=== PATIENT | male | born 1965 | race Caucasian/White ===

== ENCOUNTER 2022-02-03 08:51 | Outpatient (REF) | payer MEDICAID, SELFPAY ==
--- NOTE | ~2022-02-03 | XR_ITS ---
EXAMINATION: XR AP KNEE STANDING, BILATERAL XR KNEE, RIGHT KNEE CLINICAL INFORMATION: Knee pain. COMPARISON: None. TECHNIQUE: AP bilateral knee standing 1 view. Right knee 2 views. FINDINGS: Bilateral AP Knee: There is mild reduction in the medial compartment joint space both knees. The lateral compartment joint space is preserved. No loose bodies or bony erosive changes seen. The distal femur, proximal tibia and fibula bilaterally are unremarkable. Right Knee: There is moderate suprapatellar joint effusion with posterior-superior periarticular spurring of the patella. No loose bodies or bony erosive changes. XR/XR knee RT 2V IMPRESSION: Mild degenerative changes medial compartment both knees. Moderate suprapatellar joint effusion right knee with periarticular spurring of the patella. No visible acute fracture, dislocation or subluxation seen.
--- NOTE | ~2022-02-03 | XR_ITS ---
EXAMINATION: XR AP KNEE STANDING, BILATERAL XR KNEE, RIGHT KNEE CLINICAL INFORMATION: Knee pain. COMPARISON: None. TECHNIQUE: AP bilateral knee standing 1 view. Right knee 2 views. FINDINGS: Bilateral AP Knee: There is mild reduction in the medial compartment joint space both knees. The lateral compartment joint space is preserved. No loose bodies or bony erosive changes seen. The distal femur, proximal tibia and fibula bilaterally are unremarkable. Right Knee: There is moderate suprapatellar joint effusion with posterior-superior periarticular spurring of the patella. No loose bodies or bony erosive changes. XR/XR knee standing BI IMPRESSION: Mild degenerative changes medial compartment both knees. Moderate suprapatellar joint effusion right knee with periarticular spurring of the patella. No visible acute fracture, dislocation or subluxation seen.
== END 2022-02-03 08:52 | disposition home or self-care (01) ==
LOC: HO.HOSX 08:51
PROVIDERS: Visit Provider Orthopaedic Surgery
DX: M17.0 Bilateral primary osteoarthritis of knee (principal); L40.50 Arthropathic psoriasis, unspecified; M25.461 Effusion, right knee
CPT/HCPCS: 73560; 73565; 99202

== ENCOUNTER → 2022-03-10 12:47 | Outpatient (BNVA) | payer MEDICAID, SELFPAY | PROVIDERS: PCP Nurse Practitioner Family; Visit Provider Orthopaedic Surgery | DX: M17.11 Unilateral primary osteoarthritis, right knee (principal); M25.461 Effusion, right knee; L40.50 Arthropathic psoriasis, unspecified; M23.91 Unspecified internal derangement of right knee | CPT/HCPCS: 99212 ==

== ENCOUNTER → 2022-06-30 14:35 | Outpatient (BNVA) | payer MEDICAID, SELFPAY | PROVIDERS: PCP Nurse Practitioner Family; Visit Provider Student in an Organized Health Care Education/Training Program | DX: L40.50 Arthropathic psoriasis, unspecified (principal); M25.461 Effusion, right knee; M71.21 Synovial cyst of popliteal space [Baker], right knee; Z11.59 Encounter for screening for other viral diseases; Z11.7 Encounter for testing for latent tuberculosis infection | CPT/HCPCS: 99202 ==

== ENCOUNTER 2022-07-04 10:57 | Outpatient (REF) | payer MEDICAID, SELFPAY ==
[2022-07-04 11:20] LABS: MANUAL DIFF FLAG NO
[2022-07-04 11:51] LABS: Basophils Absolute Auto 0.1 X10*3/uL (0.0-0.2); Basophils Percent Auto 1.1 % (0-2); Eosinophils Absolute Auto 0.1 X10*3/uL (0.0-0.4); Hematocrit 39.7 % (42.0-52.0); Hemoglobin 13.9 g/dl (14.0-18.0); Imm Gran Abs Auto 0.01 X10*3/uL (0.00-0.03); Imm Gran Pct Auto 0.2 % (0.0-0.4); Lymphocytes Absolute Auto 2.4 X10*3/uL (1.2-4.9); Lymphocytes Percent Auto 43.5 % (20-40); Mean Corpuscular Hemoglobin 30.5 pg (27.0-33.0); Mean Corpuscular Volume 87.3 fL (80.0-98.0); Mean Platelet Volume 10.9 fL (9.4-12.4); Monocytes Absolute Auto 0.4 X10*3/uL (0.1-1.2); Monocytes Percent Auto 6.5 % (2-11); Neutrophils Absolute Auto 2.6 x10*3/uL (2.0-8.3); Neutrophils Percent Auto 46.7 % (45-73); Platelet Count 215 X10*3/uL (160-400); Red Blood Count 4.55 X10*6/uL (4.60-5.80); Red Cell Distribution Width 12.3 % (11.0-16.0); White Blood Count 5.6 X10*3/uL (4.8-10.8)
[2022-07-04 12:47] LABS: Erythrocyte Sedimentation Rate 5 MM/HR (0-15)
[2022-07-04 12:48] LABS: Alanine Aminotransferase 21 U/L (0-40); Albumin Level 4.5 g/dL (3.5-5.0); Alkaline Phosphatase 58 U/L (39-117); Anion Gap 13 (12-20); Aspartate Amino Transferase 20 U/L (5-37); Blood Urea Nitrogen 13 mg/dL (9-16); C Reactive Protein < 0.10 mg/dL (< or = 0.50); Calcium 9.6 mg/dL (8.4-10.2); Carbon Dioxide 29 mmol/L (22-29); Chloride 100 mmol/L (96-108); Estimated Glomerular Filt Rate > 60; Glucose Random 79 mg/dL (60-115); Sodium 138 mmol/L (135-145); Total Protein 6.9 g/dL (6.5-8.0)
[2022-07-04 13:03] LABS: HBS Num1 0.22 mIU/mL (0-7.99); HBc Num1 0.05 S/CO (0.00-0.79); HBsAGNum1 0.28 S/CO (0.00-0.99); Hepatitis A Antibody IgM 0.22 Index (0-0.79); Hepatitis B Core Antibody Nonreactive (Nonreactive); Hepatitis B Surface Antigen Negative (Negative); ~HepC Num1 0.24 S/CO (0.00-0.79); ~Hepatitis A Antibody IgM Nonreactive (Nonreactive); ~Hepatitis B Surface Antibody NONREACTIVE (Nonreactive); ~Hepatitis C Antibody Nonreactive (Nonreactive)
[2022-07-05 23:53] LABS: Prot Elec - Albumin 4.6 g/dL (3.8-4.8); Prot Elec - Alpha1 0.3 g/dL (0.2-0.3); Prot Elec - Alpha2 0.6 g/dL (0.5-0.9); Prot Elec - Beta 1 0.4 g/dL (0.4-0.6); Prot Elec - Beta 2 0.3 g/dL (0.2-0.5); Prot Elec - Gamma 1.1 g/dL (0.8-1.7); Prot Elec - Total Protein 7.1 g/dL (6.1-8.1)
[2022-07-06 14:58] LABS: IgA 159 mg/dL (47-310); IgG 1200 mg/dL (600-1640); IgM 206 mg/dL (50-300)
[2022-07-07 00:53] LABS: TS Negative Control Passed; TS Panel A 0; TS Panel B 0; TS Positive Control Passed; TSpotTB Negative (Negative)
== END 2022-07-04 10:58 | disposition home or self-care (01) ==
LOC: HO.LAB 10:57
PROVIDERS: PCP Nurse Practitioner Family; Visit Provider Student in an Organized Health Care Education/Training Program
DX: Z11.59 Encounter for screening for other viral diseases (principal); Z11.7 Encounter for testing for latent tuberculosis infection; L40.50 Arthropathic psoriasis, unspecified; M25.461 Effusion, right knee
CPT/HCPCS: 36415; 80053; 82784; 84165; 84550; 85025; 85652; 86140; 86334; 86481; 86704; 86706; 86709; 86803; 87340

== ENCOUNTER 2022-11-09 11:50 | Outpatient (REF) | payer MEDICAID, SELFPAY ==
--- NOTE | ~2022-11-09 | XR_ITS ---
EXAMINATION: XR LUMBOSACRAL SPINE WITH OBLIQUES CLINICAL INFORMATION: Low back pain, unspecified COMPARISON: None available. TECHNIQUE: AP, both oblique, and lateral views of the lumbar spine. Lateral view of the lumbosacral junction. FINDINGS: There 5 nonrib-bearing lumbar-type vertebral bodies. There is evidence of prior L5 laminectomy. The height of the vertebral bodies is well-maintained. There is mild disc space narrowing with marginal osteophyte formation at L4-L5. On the oblique views, there is no evidence of spondylolysis. There is mild grade 1 anterolisthesis of L4 with respect to L5. There is degenerative facet joint disease seen at L4-L5 and L5-S1. There is straightening of the usual lumbar lordosis which can be seen with muscle spasm. XR/XR lumbar spine 4V min IMPRESSION: 1. Muscle spasm. 2. Prior L5 laminectomy. 3. Degenerative disc disease at L4-L5. 4. Mild grade 1 anterolisthesis of L4 with respect to L5. 5. Multilevel degenerative facet joint disease.
--- NOTE | ~2022-11-09 | XR_ITS ---
EXAMINATION: XR SACROILIAC JOINTS CLINICAL INFORMATION: Low back pain, unspecified COMPARISON: Same-day lumbar spine. TECHNIQUE: AP view and oblique view of each sacroiliac joint FINDINGS: The bones are intact. No fracture. Alignment is anatomic. Sacroiliac joint spaces are well-maintained without erosions or surrounding sclerosis. XR/XR sacroiliac joint min 3V IMPRESSION: No bony abnormality.
== END 2022-11-09 11:51 | disposition home or self-care (01) ==
LOC: HO.XRAY 11:50
PROVIDERS: PCP Student in an Organized Health Care Education/Training Program; Visit Provider Student in an Organized Health Care Education/Training Program
DX: M54.50 Low back pain, unspecified (principal); L40.50 Arthropathic psoriasis, unspecified
CPT/HCPCS: 72110; 72202; 99212

== ENCOUNTER 2022-11-09 11:50 | Outpatient (AMB) | payer MEDICAID, SELFPAY ==
[2022-11-09 11:50] VITALS: BP 136/82; PULSE 85; TEMP 36.2; O2SAT 97; BMI 26.2
--- NOTE | 2022-11-09 11:50 | A.OFFVIS_ITS ---
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 Is on Enbrel 25 mg every 7-10 days. Feels well overall. Not much changed since last visit. Continues to get intermittent right knee pain and swelling especially swelling behind the knee. Worse with walking. Also states that he has been getting bilateral lower back pain that is nonradiating. Mentions that he was diagnosed with sciatica in the past. Few psoriatic patches on arms and right thigh Initial history: This is a 56-year-old male with a past medical history of psoriasis and psoriatic arthritis who presents as a new patient. 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 Patient stated he was diagnosed was psoriasis around 20 years ago and psoriatic arthritis a few years later. He stated that it has mostly affected his knees, the right knee specifically. He mentions that he was on multiple medicines including methotrexate and he could not tolerate it due to multiple side effects and it was ineffective. He was on Enbrel for the most part. He does not take the full dose, he takes 25 mg weekly every 2-3 weeks. He used Humira 2-3 doses and could not tolerate the headaches. Also could not tolerate Cosentyx after 1 dose due to headaches. His stopped Enbrel for about 7 months in 2021 as he was trying to do holistic medicine he was trying to follow the anti-inflammatory diet. He states that when he follows that diet strictly his inflammation goes down but it is very difficult to follow. He restarted the Enbrel 3-4 months ago with some improvement but he continues to have right knee pain and swelling. He was evaluated by Orthopedics and he stated that cortisone injections never provided any relief. Patient states that his psoriasis is generally very well controlled. He has a small patch on the front of his right ankle. His main problem is his right knee. He had a colonoscopy at age 49. 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 [facility] Medical History (Updated 11/09/22 @ 13:12 by Madhav Hensley MD) Hypertension Psoriasis Surgical History H/O arthroscopic knee surgery Family History Mother No problems noted. Father Parkinson disease Social History Alcohol intake: current Alcohol intake frequency: does not drink Patient Tobacco Use Status: Former Tobacco user Current occupational status: employed Current occupation: [employer] Review of Systems [facility] [place] Reports back pain, Reports arthralgias, Reports joint swelling and Reports stiffness Skin/Breast Reports rash Physical Exam Vital Signs: Last Vital Signs Temp 97.2 F 11/09/22 11:50 Pulse 85 11/09/22 11:50 BP 136/82 11/09/22 11:50 Pulse Ox 97 11/09/22 11:50 BMI result Body Mass Index 26.2 Const General: cooperative, healthy appearing and comfortable Nutritional Appearance: overweight Orientation/consciousness: patient oriented x3 Limitations: no limitations HEENT Head: Yes normocephalic and Yes atraumatic Resp Effort & Inspection: normal respiratory effort and able to speak in complete sentences Skin Other: Small psoriasis spot onthe extensor aspect of his right arm Neuro General: patient oriented x3 Extrem Other: Right knee swelling warmth and tenderness + chavez cyst. Pain with full flexion Negative Leonel's test bilaterally Negative straight leg raise test bilaterally No active synovitis otherwise Normal nailfold capillaroscopy Normal range of motion of his shoulders Assessment & Plan Assessment & Plan (1) Psoriatic arthritis: Comment: diagnosed around 2004 MTX ineffective Enbrel approx 2007 Humira 2020 for about 2-3 doses headaches side effects Cosentyx 2020 took 1 dose headaches resumed enbrel 2021 effective Code(s): L40.50 - Arthropathic psoriasis, unspecified Plan: This is a 56-year-old male with psoriatic arthritis who returns for follow-up. Doing well on Enbrel 25 mg every 7-10 days. Continues to have intermittent right knee pain swelling especially with activity. Patient does not want to advance the Enbrel dose. He received multiple intra-articular steroid injections for his right knee in the past without much relief. Continue Enbrel 25 mg every 7-10 days. Labs before next visit in 6 months (2) Low back pain, unspecified: Code(s): M54.50 - Low back pain, unspecified Qualifiers: Chronicity: chronic Back pain laterality: midline Sciatica presence: without sciatica Qualified Code(s): M54.50 - Low back pain, unspecified; G89.29 - Other chronic pain Plan: Without radiculopathy symptoms. Will check an L-spine and SI joint x-rays. Plan I spent 17 minutes reviewing patient's chart, evaluating patient, ordering diagnostic workup, counseling patient and documenting in the chart Orders: Orders XR lumbar spine 4V min Today M54.50 - Low back pain, unspecified XR sacroiliac joint min 3V Today M54.50 - Low back pain, unspecified Coding Level of Care Code Est Pt Level 3 (01010) Diagnoses Psoriatic arthritis L40.50 Low back pain, unspecified M54.50; G89.29 Chronicity: chronic Back pain laterality: midline Sciatica presence: without sciatica
== END 2022-11-09 12:23 | disposition home or self-care (01) ==
PROVIDERS: PCP Nurse Practitioner Family; Visit Provider Student in an Organized Health Care Education/Training Program
DX: L40.50 Arthropathic psoriasis, unspecified (principal); M54.50 Low back pain, unspecified; G89.29 Other chronic pain
CPT/HCPCS: 99213

== ENCOUNTER 2023-09-05 13:36 | Outpatient (AMB) | payer MEDICAID, SELFPAY ==
--- NOTE | 2023-09-05 13:54 | MHC.OFFVIS ---
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 Is on Enbrel 25 mg twice a month. Continues to have some side effects related to the Enbrel injection. Overall feels about the same. Continues to have intermittent pain in his elbows, knees, lower back. Rarely ever uses a muscle relaxant for his back. Few psoriasis patches on his left elbow but overall stable. Continues to try different holistic approaches to control the disease such as eliminating sugar which has helped. Initial history: This is a 56-year-old male with a past medical history of psoriasis and psoriatic arthritis who presents as a new patient. 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 Patient stated he was diagnosed was psoriasis around 20 years ago and psoriatic arthritis a few years later. He stated that it has mostly affected his knees, the right knee specifically. He mentions that he was on multiple medicines including methotrexate and he could not tolerate it due to multiple side effects and it was ineffective. He was on Enbrel for the most part. He does not take the full dose, he takes 25 mg weekly every 2-3 weeks. He used Humira 2-3 doses and could not tolerate the headaches. Also could not tolerate Cosentyx after 1 dose due to headaches. His stopped Enbrel for about 7 months in 2021 as he was trying to do holistic medicine he was trying to follow the anti-inflammatory diet. He states that when he follows that diet strictly his inflammation goes down but it is very difficult to follow. He restarted the Enbrel 3-4 months ago with some improvement but he continues to have right knee pain and swelling. He was evaluated by Orthopedics and he stated that cortisone injections never provided any relief. Patient states that his psoriasis is generally very well controlled. He has a small patch on the front of his right ankle. His main problem is his right knee. He had a colonoscopy at age 49. 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 [facility] Medical History Psoriasis Hypertension Surgical History H/O arthroscopic knee surgery Family History Mother No problems noted. Father Parkinson disease Social History Alcohol intake: current Alcohol intake frequency: does not drink Patient Tobacco Use Status: Former Tobacco user Current occupational status: employed Current occupation: [employer] Review of [employer] [facility] [place] Reports back pain, Reports arthralgias, Reports joint swelling and Reports stiffness Skin/Breast Reports rash Physical Exam Vital Signs: Last Vital Signs Pulse 69 09/05/23 13:55 BP 124/70 09/05/23 13:55 Pulse Ox 98 09/05/23 13:55 Oxygen Delivery Method Room Air 09/05/23 13:55 BMI result Body Mass Index 26.7 Const General: cooperative, healthy appearing and comfortable Nutritional Appearance: overweight Orientation/consciousness: patient oriented x3 Limitations: no limitations HEENT Head: Yes normocephalic and Yes atraumatic Resp Effort & Inspection: normal respiratory effort and able to speak in complete sentences Skin Other: Faint psoriasis patches on left elbow Neuro General: patient oriented x3 Extrem Other: Right knee pain with full flexion Positive resisted wrist flexion test on the left No active synovitis otherwise Normal nailfold capillaroscopy Normal range of motion of his shoulders Assessment & Plan Assessment & Plan (1) Psoriatic arthritis: Comment: diagnosed around 2004 MTX ineffective Enbrel approx 2007 Humira 2020 for about 2-3 doses headaches side effects Cosentyx 2020 took 1 dose headaches resumed enbrel 2021 effective Code(s): L40.50 - Arthropathic psoriasis, unspecified Category: Medical Plan: This is a 57-year-old male with psoriatic arthritis who returns for follow-up. Doing well on Enbrel 25 mg twice a month. Doing reasonably well well but continues to have intermittent joint pains. We potentially discussed switching to Rinvoq which might be effective and may not have the side effects that he gets with Enbrel. We discussed black box warning such as mildly increased risk of malignancy, cardiovascular events and thromboembolic phenomenon. Patient will think about it. For now will continue with Enbrel 25 mg twice a month Labs before next visit in 6 months Plan I spent 17 minutes reviewing patient's chart, evaluating patient, ordering diagnostic workup, counseling patient and documenting in the chart Orders: Orders Complete Blood Count Auto Diff 6 Months L40.50 - Arthropathic psoriasis, unspecified Comprehensive Met. Panel 6 Months L40.50 - Arthropathic psoriasis, unspecified T Spot TB 6 Months Z11.7 - Encounter for testing for latent tuberculosis infection C Reactive Protein 6 Months L40.50 - Arthropathic psoriasis, unspecified Erythrocyte Sedimentation Rate 6 Months L40.50 - Arthropathic psoriasis, unspecified Coding Level of Care Code Est Pt Level 3 (26784) Diagnoses Psoriatic arthritis L40.50
[2023-09-05 13:55] VITALS: BP 124/70; PULSE 69; O2SAT 98; BMI 26.7
== END 2023-09-05 14:32 | disposition home or self-care (01) ==
PROVIDERS: PCP Nurse Practitioner Family; Referring Provider Nurse Practitioner Family; Visit Provider Student in an Organized Health Care Education/Training Program
DX: L40.50 Arthropathic psoriasis, unspecified (principal)
CPT/HCPCS: 99213

== ENCOUNTER → 2023-09-05 13:36 | Outpatient (BNVA) | payer MEDICAID, SELFPAY | PROVIDERS: PCP Nurse Practitioner Family; Visit Provider Student in an Organized Health Care Education/Training Program | DX: L40.50 Arthropathic psoriasis, unspecified (principal); Z79.620 Long term (current) use of immunosuppressive biologic | CPT/HCPCS: 99212 ==

== ENCOUNTER 2024-04-09 12:59 | Outpatient (AMB) | payer MEDICAID, SELFPAY ==
--- NOTE | 2024-04-09 13:05 | MHC.OFFVIS ---
Vital Signs 04/09/24 13:12 Height 5 ft Weight 177 lb 7.554 oz BMI 34.7 BP 140/80 H Blood Pressure Location Lt brachial Position Sitting Pulse 86 Pulse Source Pulse Oximeter Pulse Oximetry (%) 96 Oxygen Delivery Method Room Air Intake Visit Reasons: PsA Intake Note: Patient presents for PsA. Allergies No Known Allergies Allergy (Verified 09/05/23 14:05) Medication List - Last Reconciled 04/09/24 by Madhav Hensley MD etanercept (Enbrel) 25 mg (0.5 mL) subcut QWEEK indapamide 2.5 mg PO DAILY magnesium glycinate 100 mg PO DAILY tizanidine 4 mg (2 x 2 mg) PO BEDTIME PRN trazodone 50 mg PO DAILY PRN HPI Comments Details: This is a 58-year-old male with psoriatic arthritis who returns for follow-up. He takes Enbrel 25 mg injection about every 10-12 days. He continues to feel about the same. Continues to have intermittent joint pains. He gets right shoulder pain with certain movements such as reaching backwards, he has done physical therapy multiple times for his shoulders and they make things worse, he also has a Abrams's cyst behind his right knee that intermittently bothers him. It improves right after he does the Enbrel shot. His psoriasis is well controlled overall. He has a light therapy machine at home and uses topical steroid creams Initial history: This is a 56-year-old male with a past medical history of psoriasis and psoriatic arthritis who presents as a new patient. 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 Patient stated he was diagnosed was psoriasis around 20 years ago and psoriatic arthritis a few years later. He stated that it has mostly affected his knees, the right knee specifically. He mentions that he was on multiple medicines including methotrexate and he could not tolerate it due to multiple side effects and it was ineffective. He was on Enbrel for the most part. He does not take the full dose, he takes 25 mg weekly every 2-3 weeks. He used Humira 2-3 doses and could not tolerate the headaches. Also could not tolerate Cosentyx after 1 dose due to headaches. His stopped Enbrel for about 7 months in 2021 as he was trying to do holistic medicine he was trying to follow the anti-inflammatory diet. He states that when he follows that diet strictly his inflammation goes down but it is very difficult to follow. He restarted the Enbrel 3-4 months ago with some improvement but he continues to have right knee pain and swelling. He was evaluated by Orthopedics and he stated that cortisone injections never provided any relief. Patient states that his psoriasis is generally very well controlled. He has a small patch on the front of his right ankle. His main problem is his right knee. He had a colonoscopy at age 49. 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 [facility] Medical History Psoriasis Hypertension Surgical History H/O arthroscopic knee surgery Family History Mother No problems noted. Father Parkinson disease Social History Alcohol intake: current Alcohol intake frequency: does not drink Patient Tobacco Use Status: Former Tobacco user Current occupational status: employed Current occupation: [employer] Review of Systems [facility] [place] Reports arthralgias, Reports joint swelling and Reports stiffness Skin/Breast Reports rash Physical Exam Vital Signs: Last Vital Signs Pulse 86 04/09/24 13:12 BP 140/80 H 04/09/24 13:12 Pulse Ox 96 04/09/24 13:12 Oxygen Delivery Method Room Air 04/09/24 13:12 BMI result Body Mass Index 34.7 Const General: cooperative, healthy appearing and comfortable Nutritional Appearance: overweight Orientation/consciousness: patient oriented x3 Limitations: no limitations HEENT Head: Yes normocephalic and Yes atraumatic Resp Effort & Inspection: normal respiratory effort and able to speak in complete sentences Skin Other: Faint psoriasis patches on left elbow Neuro General: patient oriented x3 Extrem Other: Positive lift-off test on the right No active synovitis otherwise Normal nailfold capillaroscopy Normal range of motion of his shoulders Assessment & Plan Assessment & Plan (1) Psoriatic arthritis: Comment: diagnosed around 2004 MTX ineffective Enbrel approx 2007 Humira 2020 for about 2-3 doses headaches side effects Cosentyx 2020 took 1 dose headaches resumed enbrel 2021 effective Code(s): L40.50 - Arthropathic psoriasis, unspecified Category: Medical Plan: This is a 58-year-old male with psoriatic arthritis who returns for follow-up. Doing well on Enbrel 25 mg injection every 10-12 days. Doing reasonably well overall. He is not on the full dose of Enbrel as he does get some side effects after the injections such as headaches and not feeling well, we had discussed potentially switching him to a different DMARD in previous visit but patient was not interested. Overall he is doing well. Psoriasis is well controlled with light therapy at home and topical steroids he only has faint patches on the left elbow today Advised patient to get his safety labs today Follow-up in 1 year Plan I spent 25 minutes reviewing patient's chart, evaluating patient, ordering diagnostic workup, counseling patient and documenting in the chart Orders: Orders Hepatitis A,B,C Profile Today Z11.59 - Encounter for screening for other viral diseases Medications: New etanercept (Enbrel) 25 mg (0.5 mL) subcut QWEEK 2 mL 11RF L40.50 - Arthropathic psoriasis, unspecified Coding Level of Care Code Est Pt Level 4 (34728) Diagnoses Psoriatic arthritis L40.50
[2024-04-09 13:12] VITALS: BP 140/80; PULSE 86; O2SAT 96; BMI 34.7
== END 2024-04-09 14:45 | disposition home or self-care (01) ==
PROVIDERS: PCP Nurse Practitioner Family; Visit Provider Student in an Organized Health Care Education/Training Program
DX: L40.50 Arthropathic psoriasis, unspecified (principal)
CPT/HCPCS: 99214

== ENCOUNTER 2024-04-09 12:59 | Outpatient (REF) | payer MEDICAID, SELFPAY ==
[2024-04-09 14:20] LABS: MANUAL DIFF FLAG NO
[2024-04-09 14:46] LABS: Basophils Absolute Auto 0.1 X10*3/uL (0.0-0.2); Basophils Percent Auto 0.8 % (0-2); Eosinophils Absolute Auto 0.3 X10*3/uL (0.0-0.4); Hematocrit 40.8 % (42.0-52.0); Hemoglobin 14.5 g/dl (14.0-18.0); Imm Gran Abs Auto 0.02 X10*3/uL (0.00-0.03); Imm Gran Pct Auto 0.2 % (0.0-0.4); Lymphocytes Absolute Auto 3.1 X10*3/uL (1.2-4.9); Lymphocytes Percent Auto 37.9 % (20-40); Mean Corpuscular HGB Conc 35.5 g/dl (31.0-36.0); Mean Corpuscular Volume 84.3 fL (80.0-98.0); Mean Platelet Volume 10.4 fL (9.4-12.4); Monocytes Absolute Auto 0.7 X10*3/uL (0.1-1.2); Monocytes Percent Auto 7.9 % (2-11); Neutrophils Absolute Auto 4.1 x10*3/uL (2.0-8.3); Neutrophils Percent Auto 50.2 % (45-73); Platelet Count 250 X10*3/uL (160-400); Red Blood Count 4.84 X10*6/uL (4.60-5.80); Red Cell Distribution Width 12.2 % (11.0-16.0); White Blood Count 8.3 X10*3/uL (4.8-10.8)
[2024-04-09 15:27] LABS: Erythrocyte Sedimentation Rate 14 MM/HR (0-15)
[2024-04-09 15:28] LABS: Alanine Aminotransferase 42 U/L (0-40); Albumin Level 4.6 g/dL (3.5-5.0); Alkaline Phosphatase 63 U/L (39-117); Anion Gap 9 (12-20); Aspartate Amino Transferase 29 U/L (5-37); Bilirubin Total 0.4 mg/dL (0.0-1.0); Blood Urea Nitrogen 19 mg/dL (9-16); C Reactive Protein 0.17 mg/dL (< or = 0.50); Carbon Dioxide 33 mmol/L (22-29); Chloride 99 mmol/L (96-108); Estimated Glomerular Filt Rate > 60; Glucose Random 89 mg/dL (60-115); Potassium 3.4 mmol/L (3.3-5.1); Sodium 138 mmol/L (135-145)
[2024-04-10 09:19] LABS: HBS Num1 0.88 mIU/mL (0-7.99); HBc Num1 0.04 S/CO (0.00-0.79); HBsAGNum1 0.36 S/CO (0.00-0.99); Hepatitis A Antibody IgM 0.17 Index (0-0.79); Hepatitis B Core Antibody Nonreactive (Nonreactive); Hepatitis B Surface Antigen Negative (Negative); ~HepC Num1 0.18 S/CO (0.00-0.79); ~Hepatitis A Antibody IgM Nonreactive (Nonreactive); ~Hepatitis B Surface Antibody NONREACTIVE (Nonreactive); ~Hepatitis C Antibody Nonreactive (Nonreactive)
[2024-04-12 02:52] LABS: TS Negative Control Passed; TS Panel A 0; TS Panel B 0; TS Positive Control Passed; TSpotTB Negative (Negative)
== END 2024-04-09 13:00 | disposition home or self-care (01) ==
LOC: HO.LAB 12:59
PROVIDERS: PCP Family Medicine; Visit Provider Student in an Organized Health Care Education/Training Program
DX: L40.50 Arthropathic psoriasis, unspecified (principal); Z11.59 Encounter for screening for other viral diseases; Z11.7 Encounter for testing for latent tuberculosis infection
CPT/HCPCS: 36415; 80053; 85025; 85652; 86140; 86481; 86704; 86706; 86709; 86803; 87340; 99212